=== PATIENT | female | born 1975 | race Caucasian/White ===

== ENCOUNTER 2016-07-29 14:44 | Emergency (ER) | payer MEDICAID ==
[~2016-07-29] VITALS: Ht 165.1 cm; Wt 89.0 kg
[2016-07-29 14:46] VITALS: Ht 165.1 cm; Wt 89.0 kg
[2016-07-29] MEDS ORDERED: ALBUTEROL 0.083% (NEB) 2.5 MG/3 ML AMP HHN STA (16:18)
[2016-07-29] MEDS ORDERED: METHYLPREDNISOLONE 125 MG INJ IM ONE (16:30)
[2016-07-29] MEDS ORDERED: IPRATROPIUM (NEB) 0.5 MG/2.5 ML AMP HHN ONE (16:30)
[2016-07-29] MEDS ORDERED: PRED20TA PO (17:24)
[2016-07-29] MEDS ORDERED: ALBU18HF INHALATION (17:24)
--- NOTE | 2016-07-29 17:27 | ERD ---
ER Documentation Chief Complaint Date/Time DATE: 07/29/16 TIME: 17:26 Chief Complaint cough with chest congestion since last night h/o asthma HPI 41-year-old female complains of a 2 day history of wheezing and coughing. She has a history of asthma and is out of her albuterol. She denies fevers, productive mucus, chest pain, vomiting, abdominal pain, urinary complaints. ROS All systems reviewed and are negative except as per history of present illness. Medications Home Meds Active Scripts Albuterol Sulfate* (Ventolin HFA*) 18 Gm Hfa.aer.ad, 2 PUFF INHALATION Q4H, #1 INHALER Prov:MILES LAMAR MD 07/29/16 Prednisone* (Prednisone*) 20 Mg Tab, 60 MG PO DAILY for 5 Days, #13 TAB 60 mg by mouth for 3 days then 40 mg by mouth for 2 days Prov:MILES LAMAR MD 07/29/16 PMhx/Soc Medical and Surgical Hx: pt denies Medical Hx, pt denies Surgical Hx Hx Alcohol Use: No Hx Substance Use: No Hx Tobacco Use: No Smoking Status: Never smoker Physical Exam Vitals Vital Signs Date Time Temp Pulse Resp B/P Pulse Ox O2 Delivery O2 Flow Rate FiO2 07/29/16 16:46 82 20 97 21 07/29/16 14:46 98.1 89 18/133 74 Physical Exam Const: [] Alert, [id number] per Head: Atraumatic Eyes: Normal Conjunctiva ENT: Normal External Ears, Nose and Mouth. Neck: Full range of motion..~ No meningismus. Resp: Clear to auscultation bilaterally. Diffuse wheezing without rales or retractions. Cardio: Regular rate and rhythm, no murmurs Abd: Soft, non tender, non distended. Normal bowel sounds Skin: No petechiae or rashes Back: No midline or flank tenderness Ext: No cyanosis, or edema Neur: Awake and alert Psych: Normal Mood and Affect Results 24 hrs Current Medications Medications (Trade) Dose Ordered Sig/[place] Route PRN Reason Start Time Stop Time Status Last Admin Dose Admin Methylprednisolone Sodium Succinate (Solu-Medrol) 125 mg ONCE ONCE IM 07/29/16 16:30 07/29/16 16:31 DC 07/29/16 16:57 Albuterol (Proventil 0.083% (Neb)) 5 mg ONCE STAT HHN 07/29/16 16:18 07/29/16 16:21 DC 07/29/16 16:43 Ipratropium [place] (Atrovent 0.02% (Neb)) 0.5 mg ONCE ONCE HHN 07/29/16 16:30 07/29/16 16:31 DC 07/29/16 16:43 Procedures/MDM Patient was given Solu-Medrol 125 mg IM and albuterol 5 mg and one Atrovent treatment. Patient improved breath sounds no evidence of hypoxemia or respiratory distress throughout the ED course. Patient appears to be having an uncomplicated asthma exacerbation we discharged home with a refill of Ventolin, prednisone taper and instructions to follow-up with primary doctor this week or return to the ER for new worsening symptoms. The patient was stable with no new complaints during the ER course. Clinically, there is no current evidence to suggest meningitis, sepsis, acute abdomen, pneumonia, acute coronary syndrome , pulmonary embolism, or any other emergent condition appearing to require further evaluation or hospitalization. The patient should certainly return for any new or worsening symptoms per the aftercare instructions. They should otherwise follow-up with her primary care doctor for reevaluation this week. Departure Diagnosis: Primary Impression: Asthma Asthma severity: unspecified severity Asthma complication type: uncomplicated Qualified Code: J45.909 - Uncomplicated asthma, unspecified asthma severity Condition: Stable Patient Instructions: Asthma, Acute (Adult) Additional Instructions: Cheque otro vez con ray doctor primario en el proximo rodriguez or regresa para mas o nueva simptomas. MILES LAMAR MD Jul 29, 2016 17:27
== END 2016-07-29 18:07 | disposition home or self-care (01) ==
LOC: FTE 14:44
DX: J45.901 Unspecified asthma with (acute) exacerbation (principal)
CPT/HCPCS: 94664; J2930; Z7610; 96372

== ENCOUNTER 2017-12-01 22:04 | Emergency (ER) | END 2017-12-02 04:44 | disposition home or self-care (01) ==